=== PATIENT | male | born 1985 | race Caucasian/White ===

== ENCOUNTER → 2024-02-18 15:51 | Outpatient (ROUT) | payer OTHER, SELFPAY ==
[2024-02-18 16:05] LABS: Semen Sperm Prescence Post-Vas Absent (ABSENT)
== END ==
PROVIDERS: PCP Family Medicine; Visit Provider Family Medicine
DX: Z98.52 Vasectomy status (principal)
CPT/HCPCS: 89321

== ENCOUNTER → 2024-03-19 15:39 | Outpatient (CLI) | payer OTHER, SELFPAY ==
[2024-03-19 17:14] LABS: TSH w/ Reflex to FT4 6.97 uIU/mL (0.47-4.68)
[2024-03-19 17:51] LABS: Free T4, Direct Thyroxine 0.73 ng/dL (0.78-2.19)
== END ==
PROVIDERS: PCP Family Medicine; Referring Provider Family Medicine; Visit Provider Family Medicine
DX: E03.9 Hypothyroidism, unspecified (principal)
CPT/HCPCS: 36415; 84439; 84443

== ENCOUNTER → 2024-08-07 19:08 | Outpatient (CLI) | payer OTHER, SELFPAY ==
--- NOTE | 2024-08-07 19:10 | DI.RAD.S_ITS ---
PROCEDURE: XR ELBOW RT 2V INDICATIONS: elbow/prox ulna pn; 4wk overuse +trauma to elbow TECHNIQUE: 3 views of the elbow were acquired. COMPARISON: None. FINDINGS: Bones: No fractures or dislocations. No suspicious bony lesions. Soft tissues: Minimal elbow joint effusion. No suspicious soft tissue calcifications. IMPRESSION: No visualized acute fracture or dislocation. However, if clinical concern and/or pain persist, short interval imaging followup in 7-10 days is recommended, as occult injury cannot be definitively excluded. Dictated by: Brittany Riddle M.D. on 08/07/2024 at 19:44 Approved by: Brittany Riddle M.D. on 08/07/2024 at 19:44
== END ==
LOC: RAD 19:09
PROVIDERS: PCP Family Medicine; Referring Provider Student in an Organized Health Care Education/Training Program; Visit Provider Student in an Organized Health Care Education/Training Program
DX: M77.9 Enthesopathy, unspecified (principal); M25.421 Effusion, right elbow
CPT/HCPCS: 73070